=== PATIENT | female | born 1990 | race American Indian/Alaskan Native ===

== ENCOUNTER 2021-12-19 18:11 | Emergency (ER) | payer MEDICAID ==
[2021-12-19 19:55] VITALS: BP 132/95
[2021-12-19 21:07] LABS: Basophils % (Auto) 0.1 % (0.0-1.8); Eosinophils % (Auto) 0.5 % (0.0-4.3); Hematocrit 44.1 % (30.3-42.9); Hemoglobin 14.8 gm/dl (10.1-14.3); Lymphocytes % (Auto) 24.5 % (13.4-35.0); Mean Corpuscular HGB Conc 34 % (30-34); Mean Corpuscular Volume 93 fl (79-97); Monocytes # (Auto) 0.4 K/mm3 (0.0-0.8); Monocytes % (Auto) 4.5 % (0.0-7.3); Platelet Count 306 K/mm3 (140-440); Red Blood Count 4.76 M/mm3 (3.65-5.03); Red Cell Distribution Width 13.2 % (13.2-15.2)
[2021-12-19 21:11] LABS: Bilirubin,Urine NEG (Negative); Blood,Urine SM (Negative); Color,Urine Amber (Yellow); Mucus,Urine 3+ /HPF; Protein,Urine <15 mg/dL mg/dL (Negative)
[2021-12-19 21:17] LABS: Amphetamine Screen,Urine Negative; Benzodiazepines Screen,Urine Negative; Cocaine Screen,Urine Negative; Methadone Screen,Urine Negative; Opiate Screen,Urine Negative
[2021-12-19 21:21] LABS: Blood Urea Nitrogen 7 mg/dL (7-17); Calcium 8.4 mg/dL (8.4-10.2); Hemolysis Index 81
[2021-12-19 21:23] LABS: BUN/Creatinine Ratio 12
[2021-12-19 21:33] LABS: Cannabinoid Screen,Urine Positive
--- NOTE | 2021-12-19 23:05 | Emergency Department Report ---
ED Psych HPI - General Chief Complaint: Psych Stated Complaint: TOOK WRONG MEDICATION Time Seen by Provider: 12/19/21 22:58 Source: patient, family Mode of arrival: Ambulatory - History of Present Illness Initial Comments: Patient is 31 years old female with unknown psychiatric history. Patient brought to the emergency room by her mother for mental health evaluation. Mother stated that patient is not taking her diabetes medication and stated that she has command hallucination. Patient admitted that she is hearing voices and having visual hallucination too. She denies any suicidal or homicidal ideation. Patient is laughing inappropriately. Patient denied any drug abuse except for marijuana. MD Complaint: altered mental status -: days(s) Associated Psychiatric Symptoms: auditory hallucinations, visual hallucinations Context: recent drug abuse Associated Symptoms: denies other symptoms - Related Data Previous Rx's Medication Instructions Recorded Last Taken Type cephALEXin [Keflex] 500 mg PO Q8HR #20 cap 12/20/21 Unknown Rx Allergies Allergy/AdvReac Type Severity Reaction Status Date / Time No Known Allergies Allergy Verified 12/19/21 19:59 ED Review of Systems ROS: Stated complaint: TOOK WRONG MEDICATION Other details as noted in HPI Comment: All other systems reviewed and negative Constitutional: denies: chills, fever Respiratory: denies: cough, shortness of breath, SOB with exertion, SOB at rest Cardiovascular: denies: chest pain, palpitations, dyspnea on exertion Gastrointestinal: denies: abdominal pain, nausea, vomiting Neurological: denies: headache, weakness, numbness, paresthesias, confusion, abnormal gait ED Past Medical Hx - Medications Home Medications: Home Medications Medication Instructions Recorded Confirmed Last Taken Type cephALEXin [Keflex] 500 mg PO Q8HR #20 cap 12/20/21 Unknown Rx ED Physical Exam - General Limitations: No Limitations General appearance: alert, in no apparent distress - Head Head exam: Present: atraumatic, normocephalic, normal inspection - Eye Eye exam: Present: normal appearance - ENT ENT exam: Present: normal exam, normal orophraynx, mucous membranes moist - Neck Neck exam: Present: normal inspection, full ROM. Absent: tenderness, meningismus - Respiratory Respiratory exam: Present: normal lung sounds bilaterally - Cardiovascular Cardiovascular Exam: Present: regular rate, normal rhythm, normal heart sounds - GI/Abdominal GI/Abdominal exam: Present: soft, normal bowel sounds. Absent: distended, tenderness, guarding, rebound, rigid, organomegaly, mass, bruit, pulsatile mass, hernia - Extremities Exam Extremities exam: Present: normal inspection, full ROM, normal capillary refill. Absent: tenderness - Back Exam Back exam: Present: normal inspection, full ROM. Absent: CVA tenderness (R), CVA tenderness (L) - Neurological Exam Neurological exam: Present: alert, oriented X3, CN II-XII intact, normal gait, reflexes normal. Absent: motor sensory deficit - Psychiatric Psychiatric exam: Present: anxious. Absent: homicidal ideation, suicidal ideation - Skin Skin exam: Present: warm, intact, normal color ED Course Vital Signs 12/19/21 19:26 Temperature 98.1 F Pulse Rate 89 Respiratory 18 Rate Blood Pressure 132/95 O2 Sat by Pulse 98 Oximetry ED Medical Decision Making - Lab Data Result diagrams: 12/19/21 20:37 12/19/21 20:37 Critical care attestation.: If time is entered above; I have spent that time in minutes in the direct care of this critically ill patient, excluding procedure time. ED Disposition Clinical Impression: Mood disorder, UTI (urinary tract infection) Disposition: [address] [place] [address] Is pt being admited?: No Condition: Stable Instructions: Urinary Tract Infection, Adult, [id number] Prescriptions: cephALEXin [Keflex] 500 mg PO Q8HR #20 cap Referrals: FRANCISCO MÁRQUEZ MD [Primary Care Provider] - 3-5 Days
[2021-12-20] MEDS ORDERED: LORazepam 2 MG/ML VIAL IM PRN (08:25)
[2021-12-20] MEDS ORDERED: diphenhydrAMINE 50 MG/ML VIAL IM PRN (08:27)
[2021-12-20] MEDS ORDERED: diphenhydrAMINE 50 MG/ML VIAL ONE (08:29)
--- NOTE | 2021-12-20 10:57 | Consultation ---
History of Present Illness - Reason for Consult Consult date: 12/20/21 Reason for consult: mental health evaluation - History of Present Psychiatric Illness The patient is a 31 year old female with unknown psychiatric history who presents to the ED for mental health evaluation. The patient was seen this morning. She states she is not sure why she is here. The patient presents with disorganized thoughts and bizarre behavior; the patient was seen pacing and switching the alarm on and off. She denies any current suicidal ideation but when asked about hallucinations she states I don't know. PAST PSYCHIATRIC HISTORY SOCIAL HISTORY ROS MENTAL STATUS EXAMINATION Assessment and Plan (1)Unspecified mood disorder Treatment Plan 1013 Zyprexa 5mg po BID No medications prescribed Risks, benefits and alternatives of medications discussed with the patient, questions answered and consent obtained from patient. PSYCHOTHERAPY: Supportive psychotherapy provided MEDICAL: Per primary team DELIRIUM PRECAUTIONS: Please re-orient patient frequently, keep lights on during the day, and minimize benzodiazepines and opiates as these medications could worsen patient's confusion. PRECIPITATION EQUIPMENT TENDER: Per primary DISPOSITION: Recommend acute inpatient psychiatric hospitalization at this time. Will follow. Thank you for the consult. Please contact with any questions and/or concerns. Case discussed with Dr. Ortiz who agrees with current disposition Medications and Allergies Medications and Allergies Allergies Allergy/AdvReac Type Severity Reaction Status Date / Time No Known Allergies Allergy Verified 12/19/21 19:59 Active Meds: Active Medications Diphenhydramine HCl (Diphenhydramine 50 Mg/Ml Vial) 50 mg IM Q8HR PRN PRN Reason: restless Lorazepam (Lorazepam 2 Mg/Ml Vial) 2 mg IM Q4HR PRN PRN Reason: Agitation Mental Status Exam - Vital signs Last Vital Signs Temp 98.1 F 12/19/21 19:26 Pulse 89 12/19/21 19:26 Resp 18 12/19/21 19:26 BP 132/95 12/19/21 19:26 Pulse Ox 98 12/19/21 19:26 Results Result Diagrams: 12/19/21 20:37 12/19/21 20:37 Abnormal lab results 12/19/21 12/19/21 12/19/21 Range/Units 20:37 20:37 20:37 Hgb (10.1-14.3) gm/dl Hct (30.3-42.9) % Seg Neutrophils % (40.0-70.0) % Sodium 135 L (137-145) mmol/L Carbon Dioxide 20 L (22-30) mmol/L Glucose 110 H (65-100) mg/dL U Epithel Cells (Auto) (0-13.0) /HPF Salicylates < 0.3 L (2.8-20.0) mg/dL Acetaminophen 5.0 L (10.0-30.0) ug/mL 12/19/21 12/19/21 Range/Units 20:37 Unknown Hgb 14.8 H (10.1-14.3) gm/dl Hct 44.1 H (30.3-42.9) % Seg Neutrophils % 70.4 H (40.0-70.0) % Sodium (137-145) mmol/L Carbon Dioxide (22-30) mmol/L Glucose (65-100) mg/dL U Epithel Cells (Auto) 54.0 H (0-13.0) /HPF Salicylates (2.8-20.0) mg/dL Acetaminophen (10.0-30.0) ug/mL All other labs normal.
== END 2021-12-20 13:51 ==
LOC: ED 18:11 → EEVIPCON 18:11 → ED 12-20 13:51
DX: F39 Unspecified mood [affective] disorder (principal); N39.0 Urinary tract infection, site not specified
CPT/HCPCS: 36415; 80048; 80307; 81001; 84703; 85025; 99285; J1200; J2060; 80320; G0480